=== PATIENT | female | born 1985 | race Caucasian/White ===

== ENCOUNTER → 2018-10-18 | Outpatient (CLI) | payer OTHER ==
[~2018-10-18] MED LIST: BUS5 PO; DULO30CA6 PO; DULO60CA7 PO; ESCI20TA38 PO; FLUT16SP19 NS; HYDR-385 PO; KET10 PO; KETO30CA16 IM; PROM-110 PO; Return to Work
--- NOTE | 2018-10-18 15:54 | RADIOLOGY IMAGING REPORT ---
FACILITY: [facility] PATIENT NAME: Maddie Magdaleno : 1985 MR: [id number] V: [id number] EXAM DATE: ORDERING PHYSICIAN: JAY MONTOYA TECHNOLOGIST: Location: [facility] - [place] Patient: Maddie Magdaleno : 1985 Visit/Account:[id number] Date of Sevice: 10/18/2018 ANKLE 2 VIEW LEFT COMPARISONS: None. ADDITIONAL PERTINENT HISTORY: Left ankle pain FINDINGS: Osseous structures: Negative. Joint spaces: Negative. Surrounding soft tissues: Negative. IMPRESSION: Normal views of the left ankle. Report Dictated By: Willy Jack MD at 10/18/2018 3:50 PM Report E-Signed By: Willy Jack MD at 10/18/2018 3:50 PM WSN:[id number]
== END ==
LOC: RAD 15:32
PROVIDERS: ATTEND Nurse Practitioner Family
DX: M25.572 Pain in left ankle and joints of left foot (principal)

== ENCOUNTER 2019-01-01 13:11 | Emergency (ER) | payer OTHER ==
[2019-01-01 13:15] VITALS: BP 118/85
--- NOTE | 2019-01-01 13:23 | ER Report ---
History and Physical Time Seen By MD: 13:18 Hx. of Stated Complaint: PATIENT HAS SEVERE RIGHT EYE PAIN THAT STARTED LAST NIGHT. PATIENT WAS TOLD BY SCHOOL NURSE THAT THE PUPILS WERE NOT CONSTRICTING NORMALLY HPI/ROS CHIEF COMPLAINT: Right eye pain HISTORY OF PRESENT ILLNESS: This is a 33-year-old female presents to the emergency room for right eye pain. Patient states that last night she began to have some pressure behind her right eye. States that continued throughout today, very sensitive to light. She is a teacher, she did go to the nurse, they noted that her pupils were reacting differently since going center to the ER. Patient arrives alert and oriented, interacting well. Lites abdomen the room, she is photophobic to the right eye. She states there is pressure behind her right eye, no sinus pain or pressure, no recent trauma, no recent illnesses or infections. No visual changes. No nausea or vomiting. No fevers or chills. No rashes. REVIEW OF SYSTEMS: Constitutional: No fever, no chills. Eyes: As above. ENT: No sore throat. Cardiovascular: No chest pain, no palpitations. Respiratory: No cough, no shortness of breath. Gastrointestinal: No abdominal pain, no vomiting. Genitourinary: No hematuria. Musculoskeletal: No back pain. Skin: No rashes. Neurological: As above. Allergies: Coded Allergies: codeine (Verified Allergy, Severe, 06/08/18) onion (Verified Allergy, Intermediate, 06/08/18) Home Meds Active Scripts [Return to Work] No Conflict Check Prov:JAY MONTOYA APRN-C 10/18/18 Duloxetine HCl (Duloxetine HCl) 60 Mg Capsule.dr, 1 CAP PO DAILY, #90 CAP 1 Refill Prov:JAY MONTOYA APRN-C 09/12/18 Reported Medications Buspirone Hcl (BUSPIRONE HCL) 5 Mg Tab, PO DAILY, #10 TAB 06/08/18 Discontinued Scripts Hydrocodone Bit/Acetaminophen (HYDROCODON-ACETAMINOPHEN 5-325) 1 Each Tablet, 1 EACH PO Q6H PRN for PAIN, #5 TAB 0 Refills Prov:JAY MONTOYA APRN-C 10/18/18 Ketorolac Tromethamine (KETOROLAC TROMETHAMINE) 10 Mg Tab, 1 TAB PO Q6H PRN for PAIN, #30 TAB 0 Refills Prov:JAY MONTOYA [employer] RESIN REMOVER-C 10/18/18 Promethazine Hcl (PROMETHAZINE HCL) 25 Mg Tablet, 0.5-1 TAB PO Q8H PRN for NAUSEA, #15 TAB 0 Refills Prov:JAY MONTOYA JERI RESIN REMOVER-C 08/10/18 Fluticasone Prop 50 Mcg Ns (FLONASE 50 MCG NS) 16 Gm [place].susp, 1 SPRAY NS BID for 10 Days, #1 BOT 0 Refills Prov:DONNA HOFF DNP, RESIN REMOVER-BC 06/08/18 Past Medical/Surgical History Patient has a past medical and surgical history of wearing glasses, migraine headaches, tension headaches, hyperlipidemia, anxiety, depression. Reviewed Nurses Notes: Yes Smoking Status: Never Smoker Hx Substance Use Disorder: No Constitutional Vital Sign - Last 24 Hours 01/01/19 13:15 Temp 98.5 Pulse 88 Resp 16 B/P (MAP) 118/85 Pulse Ox 98 O2 Delivery Room Air Physical Exam General Appearance: The patient is alert, has no immediate need for airway protection and no signs of toxicity. Eyes: Pupils equal and round no pallor or injection. Profoundly photophobic the right eye. EOMs intact, no nystagmus. Difficult fundus exam due to the patient's profound phobia of eye exams, No obvious papilledema noted on limited exam. OD pressure 16, OS pressure 24. ENT, Mouth: Mucous membranes are moist. Respiratory: There are no retractions, lungs are clear to auscultation. Cardiovascular: Regular rate and rhythm. Gastrointestinal: Abdomen is soft and non tender, no masses, bowel sounds normal. Neurological: Alert and oriented 4. Moving all extremities. Following all commands. No focal neuro deficits. Skin: Warm and dry, no rashes. Musculoskeletal: Neck is supple non tender. Extremities are nontender, nonswollen and have full range of motion. DIFFERENTIAL DIAGNOSIS: After history and physical exam differential diagnosis was considered for headache including but not limited to subarachnoid hemorrhage, migraine headache, tension headache and infectious causes such as meningitis, glaucoma, pharyngitis and sinusitis. Medical Decision Making ED Course/Re-evaluation ED Course The patient was admitted to room. A history and physical obtained. Differential diagnoses were considered. Both eyes were numbed with proparacaine, very difficult exam due to the patient's phobia of eye exams. This was a 2 person task to obtain the pressures. Patient was very tearful after the exam, she states that she is very anxious still due to the complaints of the pressure behind the right eye, I did recommend a CT of the brain and orbits initially patient was agreeable, however the patient's for what ever reason decided that she did not would proceed with any imaging, I did recommend that she follows up with ophthalmology as soon as possible as well, the patient states that she will try to do this, she states that she avoids the eye doctor other she does wear glasses due to her severe phobia of eye exams. I did tell her that due to the nature of the pain, pressure and her concerns I was concerned about tumor, glaucoma, patient understood this and left against medical advice. She was encouraged to return to the ER for any other concerns or worsening symptoms. The patient did sign the AMA paperwork at the time of discharge. She also left before the discharge paperwork was available. Decision to Disposition Date: Jan 01, 2019 Decision to Disposition Time: 14:32 Depart Departure Latest Vital Signs Vital Signs Date Time Temp Pulse Resp B/P (MAP) Pulse Ox O2 Delivery O2 Flow Rate FiO2 01/01/19 13:15 98.5 88 16 118/85 98 Room Air Impression: Primary Impression: Acute right eye pain Additional Impression: Left against medical advice Condition: Improved Disposition: HOME OR SELF-CARE Referrals: OPHTHALMOLOGY 1 Day Patient Instructions: Eye Pain (ED), Migraine Headache (ED), Ocular Migraine (ED) Additional Instructions: Although you have elected to leave against medical advice, and have elected not to proceed with a CT of the brain and the eyes, if anything changes please return to the emergency department immediately. Please follow up with ophthalmology as soon as possible, I was going to try and arrange this for you but I was unable to do so as he left against medical advice. Continue drinking plenty of water. Get plenty of rest. Take ibuprofen or Tylenol as needed for pain. Return to the ER for any concerns or worsening symptoms. Problem Qualifiers TRENT CHRISTIANSON RESIN REMOVER-BC Jan 01, 2019 13:23
[2019-01-01] MEDS ORDERED: PROPARACAINE 0.5% OP 15ML BTL OU ONE (13:30)
[2019-01-01] MEDS ORDERED: IOPAMIDOL 76% 150 ML INFUS BTL 150 ML ONE (14:24)
== END 2019-01-01 15:03 | disposition left against medical advice (07) ==
LOC: ER 13:46
DX: H57.11 Ocular pain, right eye (principal); Z53.20 Procedure and treatment not carried out because of patient's decision for unspecified reasons
CPT/HCPCS: 99282; Q9967

== ENCOUNTER → 2019-01-31 | Outpatient (CLI) | payer OTHER ==
[~2019-01-31] MED LIST changes: +AMOX-559 PO
--- NOTE | 2019-01-31 18:11 | RADIOLOGY IMAGING REPORT ---
FACILITY: [facility] PATIENT NAME: Maddie Magdaleno : 1985 MR: [id number] V: [id number] EXAM DATE: ORDERING PHYSICIAN: JAY MONTOYA TECHNOLOGIST: Location: [facility] - [place] Patient: Maddie Magdaleno : 1985 Visit/Account:[id number] Date of Sevice: 01/31/2019 Study: Frontal and lateral views of the chest Indication: Cough, decreased lung sounds Comparison study: None Findings: PA and lateral views of the chest demonstrate no evidence of acute infiltrate. There is no evidence of pleural effusion. There is no evidence of pneumothorax. The mediastinal, cardiac, and diaphragmatic contours are unremarkable. The visualized bony structures are unremarkable. IMPRESSION: Unremarkable chest. Report Dictated By: Kevin Alejandre at 01/31/2019 6:05 PM Report E-Signed By: Kevin Alejandre at 01/31/2019 6:06 PM WSN:[id number]
== END ==
LOC: RAD 17:29
PROVIDERS: ATTEND Nurse Practitioner Family
DX: R06.89 Other abnormalities of breathing (principal)
CPT/HCPCS: 71046

== ENCOUNTER → 2019-04-03 | Outpatient (CLI) | payer OTHER ==
[~2019-04-03] MED LIST changes: +CETI-176 PO; +FLUC150T40 PO; +PROP20TA56 PO
--- NOTE | 2019-04-09 00:53 | RT HOLTER TEST ---
FACILITY: [facility] PATIENT NAME: CHATA PAYNE : [id number] MR: [id number] V: [id number] EXAM DATE: ORDERING PHYSICIAN: JAY MONTOYA TECHNOLOGIST: BLAKE Hook-up date: 2019-04-03 10:19:00 Duration: 29:42:00 Test Indications: [place] Medications: NAMES NOT RECORDED [id number] QRS complexes * Ventricular ectopics which represent % of total QRS comp. * Supraventricular ectopics which represent % of total QRS comp. * Paced QRS complexes which represent % of total QRS comp. VENTRICULAR ECTOPY * Isolated * Bigeminal Cycles * Couplets * Runs * Beats in Runs * Beats LONGEST at * BPM at :: -- * Beats FASTEST at * BPM at :: -- SUPRAVENTRICULAR ECTOPY * Isolated * Couplets * Runs * Beats in Runs * Beats LONGEST at * BPM at :: -- * Beats FASTEST at * BPM at :: -- HEART RATES 58 MIN at 06:41:40 2019-04-04 92 AVG 135 MAX at 14:51:49 2019-04-04 LONGEST RR 1.152 secs at 10:31:22 2019-04-04 S-T LEVELS Channel 1 -12.800 mm MIN at 10:19:00 2019-04-03 -12.800 mm MAX at 10:19:00 2019-04-03 Channel 2 -12.800 mm MIN at 10:19:00 2019-04-03 -12.800 mm MAX at 10:19:00 2019-04-03 Channel 3 -12.800 mm MIN at 10:19:00 2019-04-03 -12.800 mm MAX at 10:19:00 2019-04-03 Sinus rhythym throughout study. No arrhythmias recorded. Periods of sinus tachycardia maximum rate 135 Negative Holter study. Confirmed by Igor Good ([id number]) on 04/09/2019 12:49:09 AM Referred By: Overread By: Igor Gould
== END ==
LOC: RESP 01:48
PROVIDERS: ATTEND Nurse Practitioner Family
DX: R00.2 Palpitations (principal)
CPT/HCPCS: 93225; 93226